=== PATIENT | female | born 1960 | race Caucasian/White ===

== ENCOUNTER 2016-06-20 19:28 | Emergency (ER) | payer OTHER | END 2016-06-20 21:12 | disposition home or self-care (01) | LOC: ER 19:28 | DX: G31.9 Degenerative disease of nervous system, unspecified (principal); S09.90XA Unspecified injury of head, initial encounter; W01.10XA Fall on same level from slipping, tripping and stumbling with subsequent striking against unspecified object, initial encounter; Y99.0 Civilian activity done for income or pay; Y92.524 Gas station as the place of occurrence of the external cause; Z79.899 Other long term (current) drug therapy; Z88.8 Allergy status to other drugs, medicaments and biological substances; Z88.1 Allergy status to other antibiotic agents | CPT/HCPCS: 70450; 99283; 99283-25 ==